=== PATIENT | female | born 1985 | race Caucasian/White ===

== ENCOUNTER 2017-06-14 20:34 | Emergency (ER) | payer BC ==
[~2017-06-14] VITALS: Ht 167.6 cm; Wt 67.2 kg
[~2017-06-14 20:34] MED LIST: CLARITIN,ALAVAR10 MG PO; IBUPROFEN800 MG PO; Motrin PO; PRENATAL TABLE1 EAC3 PO
[2017-06-14 22:58] VITALS: BP 118/68
== END 2017-06-14 23:06 | disposition home or self-care (01) ==
LOC: EME 20:34
DX: H57.04 Mydriasis (principal); Z87.891 Personal history of nicotine dependence
CPT/HCPCS: 99281; 99284